=== PATIENT | male | born 1985 | race Two or more races ===

== ENCOUNTER 2019-10-12 00:15 | Emergency (ER) | payer SELFPAY ==
[~2019-10-12] VITALS: Ht 167.6 cm; Wt 63.1 kg
[2019-10-12 00:18] VITALS: BP 142/75
--- NOTE | 2019-10-12 00:32 | NUR ---
Patient presents to ER c/o weakness and disorientation x1 month. Patient denies pain or other symptoms. Patient is AAOx4, GCS 15. Patient is in NAD. Respirations even and unlabored.
--- NOTE | 2019-10-12 00:44 | NUR ---
Patient asking, "What would you think if there was a portal here that could take you [place] the [place]? Would that be weird?" Patient unable to sit still and appears agitated.
[2019-10-12 00:47] LABS: BASOPHILS # (AUTO) 0.04 x10^3/uL (0-0.1); BASOPHILS % (AUTO) 0 % (0-1); EOSINOPHILS # (AUTO) 0.19 x10^3/uL (0-0.4); EOSINOPHILS % (AUTO) 2 % (1-7); LYMPHOCYTES % (AUTO) 17 % (22-44); MD NO; MEAN CORPUSCULAR HEMOGLOBIN 29.9 pg (27.5-34.5); MEAN CORPUSCULAR HGB CONC 33.6 g/dL (33.2-36.2); MEAN CORPUSCULAR VOLUME 88.8 fL (81-97); MEAN PLATELET VOLUME 7.8 fL (7.4-10.4); MONOCYTES # (AUTO) 0.41 x10^3/uL (0.2-0.8); MONOCYTES % (AUTO) 5 % (2-9); NEUTROPHILS # (AUTO) 6.59 x10^3/uL (1.8-6.8); NEUTROPHILS % (AUTO) 76 % (42-75); PLATELET COUNT 304 x10^3/uL (130-400); RED BLOOD COUNT 5.23 x10^6/uL (4.38-5.82); RED CELL DISTRIBUTION WIDTH 13.9 % (9.4-14.8)
[2019-10-12 00:59] LABS: ALANINE AMINOTRANSFERASE 45 U/L (12-78); ALBUMIN 4.2 g/dL (3.4-5.0); ANION GAP 7 mmol/L (5-15); CHLORIDE 101 mmol/L (98-107); CREATININE 1.16 mg/dL (0.7-1.3)
[2019-10-12 01:02] LABS: ALKALINE PHOSPHATASE 110 U/L (45-117); BILIRUBIN,TOTAL 0.8 mg/dL (0.2-1.0); TOTAL PROTEIN 8.3 g/dL (6.4-8.2)
[2019-10-12 01:04] LABS: AMPHETAMINE SCREEN, URINE Positive (Negative); BARBITURATE SCREEN, URINE Negative (Negative); BENZODIAZEPINE SCREEN, URINE Negative (Negative); CANNABINOID SCREEN, URINE Negative (Negative); COCAINE SCREEN, URINE Negative (Negative); METHADONE SCREEN, URINE Negative (Negative); OPIATE SCREEN, URINE Negative (Negative)
--- NOTE | 2019-10-12 01:21 | NUR ---
Discharge instructions given. All questions and concerns addressed. Patient ambulatory with a steady gait. Belongings with patient.
--- NOTE | 2019-10-12 01:22 | NUR ---
Patient escorted out by security.
== END 2019-10-12 01:23 | disposition home or self-care (01) ==
LOC: ED 00:30
DX: R53.1 Weakness (principal); F15.129 Other stimulant abuse with intoxication, unspecified; Z72.9 Problem related to lifestyle, unspecified; R00.0 Tachycardia, unspecified
CPT/HCPCS: 36415; 80053; 80307; 85025; 93005; 99284

== ENCOUNTER 2019-10-23 18:16 | Emergency (ER) | payer OTHER ==
[~2019-10-23] VITALS: Ht 167.6 cm; Wt 62.0 kg
[2019-10-23 18:29] VITALS: BP 138/113
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
== END 2019-10-23 19:44 | disposition home or self-care (01) ==
LOC: ED 18:30
DX: F15.10 Other stimulant abuse, uncomplicated (principal); R41.0 Disorientation, unspecified
CPT/HCPCS: 99283